=== PATIENT | male | born 1990 | race African-American/Black ===

== ENCOUNTER 2019-07-28 21:39 | Emergency (ER) | payer MEDICAID, OTHER ==
[~2019-07-28] VITALS: Ht 167.6 cm; Wt 93.0 kg
[2019-07-29] MEDS ORDERED: ACETAMINOPHEN 500 MG TAB PO ONE (00:45)
[2019-07-29] MEDS ORDERED: IBUPROFEN 800 MG TAB PO ONE (00:45)
[2019-07-29 01:28] VITALS: BP 135/91
== END 2019-07-29 01:31 | disposition home or self-care (01) ==
LOC: ER 21:39
DX: S02.601A Fracture of unspecified part of body of right mandible, initial encounter for closed fracture (principal); X58.XXXA Exposure to other specified factors, initial encounter; Y93.89 Activity, other specified; Y92.89 Other specified places as the place of occurrence of the external cause; Y99.8 Other external cause status
CPT/HCPCS: 70486